=== PATIENT | female | born 1940 | race Caucasian/White ===

== ENCOUNTER 2018-10-31 17:13 | Observation (INO) | payer MEDICARE ==
[2018-10-31] MEDS ORDERED: Albuterol-Ipratrop 3 mg / 0.5 (3 ml) UD ONE ×2 (17:43→20:21)
[2018-10-31] MEDS ORDERED: MethylPREDNISolone 40 mg Vial IVP STA (18:15)
[2018-10-31] MEDS ORDERED: Albuterol-Ipratrop 3 mg / 0.5 (3 ml) UD INH STA ×2 (18:15→19:46)
--- NOTE | 2018-10-31 18:29 | C.PDOC ---
History Of Present Illness 78 y/o female with a PMHx of HTN and DM, comes in for evaluation of cough and congestion for the last 3 days. Patient was seen by PMD and started on amoxicillin with minimal relief. Also reports chills. Otherwise patient denies any fevers, chest pain, SOB, nausea, or vomiting. Time Seen by Provider: 10/31/18 18:09 Chief Complaint (Nursing): Shortness Of Breath History Per: Patient History/Exam Limitations: no limitations Onset/Duration Of Symptoms: Days Current Symptoms Are (Timing): Still Present Associated Symptoms: Chills, Cough, Nasal Congestion Past Medical History Reviewed: Historical Data, Nursing Documentation, Vital Signs Vital Signs: Last Vital Signs Temp 97.6 F 10/31/18 17:32 Pulse 106 H 10/31/18 17:32 Resp 20 10/31/18 17:32 BP 130/74 10/31/18 17:32 Pulse Ox 92 L 10/31/18 17:32 - Medical History PMH: Arthritis, Diabetes, HTN, Hypercholesterolemia Surgical History: No Surg Hx Family History: States: No Known Family Hx - Social History Hx Alcohol Use: No Hx Substance Use: No - Immunization History Hx Tetanus Toxoid Vaccination: No Hx Influenza Vaccination: Yes (07/2018) Hx Pneumococcal Vaccination: No Review Of Systems Except As Marked, All Systems Reviewed And Found Negative. Constitutional: Positive for: Chills. Negative for: Fever Eyes: Negative for: Vision Change ENT: Positive for: Nose Congestion Cardiovascular: Negative for: Chest Pain, Palpitations Respiratory: Positive for: Cough, Wheezing. Negative for: Shortness of Breath Gastrointestinal: Negative for: Nausea, Vomiting, Diarrhea Skin: Negative for: Rash Neurological: Negative for: Weakness, Numbness, Dizziness Physical Exam - Physical Exam Appears: Non-toxic, No Acute Distress Skin: Warm, Dry Head: Atraumatic, Normacephalic Eye(s): bilateral: Normal Inspection, PERRL, EOMI Oral Mucosa: Moist Throat: Normal, No Erythema, No Exudate Neck: Normal ROM, Supple Chest: Symmetrical Cardiovascular: Rhythm Regular, No Murmur Respiratory: No Rales, No Rhonchi, Wheezing (scattered), Other (No respiratory distress) Gastrointestinal/Abdominal: Soft, No Tenderness, No Distention Back: Normal Inspection Extremity: Bilateral: Atraumatic, Normal Color And Temperature, Normal ROM Neurological/Psych: Oriented x3, Normal Speech ED Course And Treatment - Laboratory Results Result Diagrams: 10/31/18 18:37 10/31/18 18:37 O2 Sat by Pulse Oximetry: 92 (RA) Pulse Ox Interpretation: Abnormal Medical Decision Making Medical Decision Making: suspect asthmatic bronchitis. pt mildy hypoxic. with diffuse wheezing rhonic Plan: --Labs --EKG --Chest x-ray --Albuterol neb x1 --125 mg IV solu-medrol --Reassess persisent wheezing. cxr likely basilar atelecatsis vs infiltrate. empri antibiotics ordered. accepted by dr cragi for obs. Disposition - Disposition Disposition: HOSPITALIZED Disposition Time: 20:44 Condition: STABLE - Clinical Impression Clinical Impression: Asthmatic bronchitis - Scribe Statement The provider has reviewed the documentation as recorded by the Domingo Henriquez Provider Attestation: All medical record entries made by the Jonnyibjohn were at my direction and personally dictated by me. I have reviewed the chart and agree that the record accurately reflects my personal performance of the history, physical exam, medical decision making, and the department course for this patient. I have also personally directed, reviewed, and agree with the discharge instructions and disposition. Decision To Admit - . Bed Request Type: Regular Admitting Physician: Rama Craig Patient Diagnosis: Asthmatic bronchitis
[2018-10-31 18:45] LABS: BASO % 0.6 % (0.0-2.0); EOS # 0.1 K/uL (0.0-0.7); EOS % 1.1 % (0.0-4.0); HEMOGLOBIN 12.8 g/dL (11.0-16.0); LYMPH # 1.7 K/uL (1.0-4.3); LYMPH % 23.6 % (20.0-40.0); MEAN CELL VOLUME 93.3 fL (81.0-99.0); MEAN CORPUSCULAR HEMOGLOBIN 31.4 pg (27.0-31.0); MEAN CORPUSCULAR HGB CONC 33.7 g/dL (33.0-37.0); MONO # 0.6 K/uL (0.0-0.8); NEUT # 4.9 K/uL (1.8-7.0); NEUT % 66.7 % (50.0-75.0); NRBC % 0.1 % (0.0-2.0); RBC 4.08 Mil/uL (3.80-5.20); RED CELL DISTRIBUTION WIDTH 13.2 % (11.5-14.5); WHITE BLOOD COUNT 7.3 K/uL (4.8-10.8)
[2018-10-31 18:59] LABS: ALB/GLOB RATIO 1.2 (1.0-2.1); ALBUMIN 5.1 g/dL (3.5-5.0); ALT/SGPT 55 U/L (9-52); AST/SGOT 58 U/L (14-36); BLOOD UREA NITROGEN 24 mg/dL (7-17); CALCIUM 9.8 mg/dl (8.6-10.4); GFR NON-AFRICAN AMERICAN 54
[2018-10-31 19:03] LABS: SQUAMOUS EPITHIAL < 1 /hpf (0-5); URINE BILIRUBIN NEGATIVE (NEGATIVE); URINE BLOOD NEGATIVE (NEGATIVE); URINE CLARITY Clear (Clear); URINE COLOR Straw (YELLOW); URINE GLUCOSE (UA) 2+ mg/dL (Normal); URINE LEUKOCYTE ESTERASE NEG Leu/uL (Negative); URINE PROTEIN NEGATIVE (NEGATIVE); URINE UROBILINOGEN NORMAL mg/dL (0.2-1.0)
[2018-10-31 19:09] LABS: B-TYPE NATRIURETIC PEPTIDE 121 pg/mL (0-900)
[2018-10-31] MEDS ORDERED: Azithromycin 500 MG in Sodium Chloride 0.9% 250 ML IVPB STA (19:46)
[2018-10-31] MEDS ORDERED: Azithromycin 500mg/250ML NS 500 MG/250 ML BAG IVPB ONE (20:22)
[2018-10-31] MEDS: (Novolog) Insulin Aspart, Recombinant 100 u/ml 10 ml vial SC SCH (22:58)
[2018-10-31 23:42] VITALS: RESP 20
[2018-11-01] MEDS: Albuterol-Ipratrop 3 mg / 0.5 (3 ml) UD INH SCH ×6 (00:51→20:47)
[2018-11-01] MEDS: (Novolog) Insulin Aspart, Recombinant 100 u/ml 10 ml vial SC SCH ×4 (07:55→21:18)
--- NOTE | 2018-11-01 09:04 | RAD ---
Date of service: 10/31/2018 PROCEDURE: CHEST RADIOGRAPH, 1 VIEW HISTORY: chest pain COMPARISON: 07/25/2018. FINDINGS: LUNGS: The lungs are well inflated and clear. PLEURA: No pneumothorax or pleural effusion. CARDIOVASCULAR: The heart is normal in size. No aortic atherosclerotic calcifications present. OSSEOUS STRUCTURES: Within normal limits for the patient's age. VISUALIZED UPPER ABDOMEN: Normal. OTHER FINDINGS: None. IMPRESSION: No active pulmonary disease.
[2018-11-01] MEDS ORDERED: Enoxaparin 40 mg Syringe SC SCH (10:00)
[2018-11-01] MEDS ORDERED: Azithromycin 500mg/250ML NS 500 MG/250 ML BAG IVPB SCH (10:00)
[2018-11-01] MEDS: NIFEdipine 30 mg ER Tab PO SCH (10:07)
[2018-11-01] MEDS: Enoxaparin 40 mg Syringe SC SCH (10:08)
[2018-11-01] MEDS: MethylPREDNISolone 40 mg Vial IVP SCH ×2 (10:09→17:29)
[2018-11-02] MEDS: Albuterol-Ipratrop 3 mg / 0.5 (3 ml) UD INH SCH ×6 (00:15→23:50)
[2018-11-02] MEDS: (Novolog) Insulin Aspart, Recombinant 100 u/ml 10 ml vial SC SCH ×4 (07:54→21:17)
[2018-11-02] MEDS: NIFEdipine 30 mg ER Tab PO SCH (09:41)
[2018-11-02] MEDS: Enoxaparin 40 mg Syringe SC SCH (09:42)
[2018-11-02] MEDS: MethylPREDNISolone 40 mg Vial IVP SCH ×2 (09:42→17:24)
[2018-11-02] MEDS ORDERED: Pneumococcal 23-Valent Vaccine IM ONE (10:00)
[2018-11-02] MEDS: Azithromycin 500mg/250ML NS 500 MG/250 ML BAG IVPB SCH (10:45)
[2018-11-03] MEDS: (Novolog) Insulin Aspart, Recombinant 100 u/ml 10 ml vial SC SCH ×4 (07:42→21:27)
--- NOTE | 2018-11-03 08:14 | HP ---
HISTORY OF PRESENT ILLNESS: A 78-year-old female, admitted to the hospital with chief complaint of shortness of breath, weakness, fatigue, tiredness. The patient has diabetes and hypertension, came to the ER for evaluation. PHYSICAL EXAMINATION: GENERAL: The patient is awake, alert, and oriented. VITAL SIGNS: Temperature 98, pulse 90. HEENT: Within normal limits. NECK: Supple. CHEST: Symmetrical. HEART: Regular. Decreased air entry bilaterally. ABDOMEN: Soft. EXTREMITIES: No edema. ASSESSMENT AND PLAN: The patient suffers from bronchitis and pneumonia. The patient is placed on IV antibiotics, . Rama Castle MD
[2018-11-03] MEDS: Albuterol-Ipratrop 3 mg / 0.5 (3 ml) UD INH SCH ×4 (08:23→20:55)
[2018-11-03] MEDS: MethylPREDNISolone 40 mg Vial IVP SCH ×2 (09:33→17:25)
[2018-11-03] MEDS: NIFEdipine 30 mg ER Tab PO SCH (09:33)
[2018-11-03] MEDS: Enoxaparin 40 mg Syringe SC SCH (09:33)
[2018-11-03] MEDS: Azithromycin 500mg/250ML NS 500 MG/250 ML BAG IVPB SCH (09:52)
--- NOTE | 2018-11-03 10:08 | CP.PCM.PN ---
Subjective - Date & Time of Evaluation Date of Evaluation: 11/03/18 Time of Evaluation: 09:02 - Subjective Subjective: PGY2 Medicine Note Dr. Castle Patient seen and examined this morning at bedside. No acute events overnight. Patient is complaining of nasal congestion. She had a nose bleed yesterday and is still experiencing some intermittent bleeding when she blows her nose. Her breathing is much improved but still coughing at times. Denies fevers, chills, nausea, vomiting, diarrhea, constipation, chest pain or shortness of breath. Objective - Vital Signs/Intake and Output Vital Signs (last 24 hours): Temp Pulse Resp BP Pulse Ox 97.9 F 90 20 166/91 H 98 11/03/18 07:45 11/03/18 07:45 11/03/18 07:45 11/03/18 07:45 11/03/18 07:53 Intake and Output: 11/03/18 11/03/18 06:59 18:59 Intake Total 1040 Balance 1040 - Medications Medications: Current Medications Albuterol/Ipratropium (Duoneb 3 Mg/0.5 Mg (3 Ml) Ud) 3 ml INH RQ4 [facility] Last Admin: 11/03/18 08:23 Dose: 3 ml Aspirin (Ecotrin) 81 mg PO DAILY [facility] Last Admin: 11/03/18 09:33 Dose: 81 mg Enoxaparin Sodium (Lovenox) 40 mg SC DAILY [facility] Last Admin: 11/03/18 09:33 Dose: 40 mg Glipizide (Glucotrol) 5 mg PO DAILY [facility] Last Admin: 11/03/18 09:33 Dose: 5 mg Hydrochlorothiazide (Hydrodiuril) 25 mg PO DAILY [facility] Last Admin: 11/03/18 09:33 Dose: 25 mg Ceftriaxone Sodium 1 gm/ (Sodium Chloride) 100 mls @ 100 mls/hr IVPB DAILY [facility]; Protocol Last Admin: 11/03/18 09:34 Dose: 100 mls/hr Azithromycin (Zithromax 500mg In Ns Addvantage) 500 mg in 250 mls @ 167 mls/hr IVPB DAILY [facility]; Protocol Last Admin: 11/03/18 09:52 Dose: 167 mls/hr Insulin Aspart (Novolog) 0 unit SC ACHS [facility]; Protocol Last Admin: 11/03/18 07:42 Dose: Not Given Losartan Potassium (Cozaar) 100 mg PO DAILY [facility] Last Admin: 11/03/18 09:52 Dose: 100 mg Methylprednisolone (Solu-Medrol) 40 mg IVP BID [facility] Last Admin: 11/03/18 09:33 Dose: 40 mg Nifedipine (Procardia Xl) 30 mg PO DAILY [facility] Last Admin: 11/03/18 09:33 Dose: 30 mg Oseltamivir Phosphate (Tamiflu Cap) 75 mg PO BID [facility]; Protocol Stop: 11/05/18 20:59 Last Admin: 11/03/18 09:33 Dose: 75 mg Pantoprazole Sodium (Protonix Inj) 40 mg IVP DAILY [facility] Last Admin: 11/03/18 09:33 Dose: 40 mg Sitagliptin Phosphate (Januvia) 100 mg PO DAILY [facility] Last Admin: 11/03/18 09:33 Dose: 100 mg - Labs Labs: 10/31/18 18:37 10/31/18 18:37 APTT 30 SECONDS (21-34) 10/31/18 18:37 - Constitutional Appears: Non-toxic, No Acute Distress - Head Exam Head Exam: ATRAUMATIC, NORMOCEPHALIC - Eye Exam Eye Exam: Normal appearance - ENT Exam Additional comments: dried blood in left nostril Maxillary sinus tender to palpation - Neck Exam Neck Exam: absent: Lymphadenopathy, Tenderness - Respiratory Exam Respiratory Exam: NORMAL BREATHING PATTERN. absent: Accessory Muscle Use, Rales, Rhonchi, Wheezes, Respiratory Distress - Cardiovascular Exam Cardiovascular Exam: REGULAR RHYTHM, +S1, +S2 - GI/Abdominal Exam GI & Abdominal Exam: Soft. absent: Distended, Firm, Guarding, Rigid, Tenderness - Extremities Exam Extremities Exam: absent: Calf Tenderness, Pedal Edema - Neurological Exam Neurological Exam: Alert, Awake, Oriented x3 - Psychiatric Exam Psychiatric exam: Normal Affect, Normal Mood - Skin Skin Exam: Dry, Warm Assessment and Plan - Assessment and Plan (Free Text) Plan: Pneumonia Bronchitis CXR - no active pulmonary disease Afebrile Still intermittent coughing Medications: * Azithromycin 500mg IVPB (started on 11/02) * Rocephin 1gm IVPB (started on 11/02) * Solu-Medrol 40mg IVP BID * Oseltamivir 75mg PO BID * Duonebs q4h Diabetes Medications: * Glipizide 5mg PO daily * Sitagliptin 100mg PO daily Hypertension Medications: * Losartan 100mg PO daily * Nifedipine ER 30mg PO daily * HCTZ 25mg PO daily * Aspirin 81mg PO daily Prophylactic Care Lovenox 40mg SC daily DISPO: Plan to discharge home tomorrow. Patient is aware of plans for discharge tomorrow. Case discussed with Dr. Tin Givens Jaspreet PGY2
[2018-11-03 17:02] VITALS: O2SAT 97
[2018-11-04] MEDS: Albuterol-Ipratrop 3 mg / 0.5 (3 ml) UD INH SCH ×3 (00:39→07:25)
[2018-11-04] MEDS: (Novolog) Insulin Aspart, Recombinant 100 u/ml 10 ml vial SC SCH ×2 (07:33→12:27)
[2018-11-04] MEDS: NIFEdipine 30 mg ER Tab PO SCH (09:39)
[2018-11-04] MEDS: MethylPREDNISolone 40 mg Vial IVP SCH (09:40)
[2018-11-04] MEDS: Azithromycin 500mg/250ML NS 500 MG/250 ML BAG IVPB SCH (09:41)
[2018-11-04] MEDS: Enoxaparin 40 mg Syringe SC SCH (09:43)
--- NOTE | 2018-11-04 10:47 | CP.PCM.PN ---
Subjective - Date & Time of Evaluation Date of Evaluation: 11/04/18 Time of Evaluation: 07:30 - Subjective Subjective: Medicine progress note ( Dr. Castle's service) Patient was seen and examined at bedside. Patient reports that she is doing well and has no acute complaints. Patient still complains of cough with white phlegm, however, she notes improved breathing and wheezing. Patient denies symptoms of fever, chills, chest pain, palpitations, shortness of breath, nausea, vomiting, hemoptysis, dizziness or lightheadedness. Objective - Vital Signs/Intake and Output Vital Signs (last 24 hours): Temp Pulse Resp BP Pulse Ox 98 F 104 H 20 117/69 97 11/03/18 23:35 11/03/18 23:35 11/03/18 23:35 11/03/18 23:35 11/04/18 08:12 - Medications Medications: Current Medications Albuterol/Ipratropium (Duoneb 3 Mg/0.5 Mg (3 Ml) Ud) 3 ml INH RQ4 [facility] Last Admin: 11/04/18 07:25 Dose: 3 ml Aspirin (Ecotrin) 81 mg PO DAILY [facility] Last Admin: 11/04/18 09:39 Dose: 81 mg Enoxaparin Sodium (Lovenox) 40 mg SC DAILY [facility] Last Admin: 11/04/18 09:43 Dose: 40 mg Glipizide (Glucotrol) 5 mg PO DAILY [facility] Last Admin: 11/04/18 09:39 Dose: 5 mg Hydrochlorothiazide (Hydrodiuril) 25 mg PO DAILY [facility] Last Admin: 11/04/18 09:39 Dose: 25 mg Azithromycin (Zithromax 500mg In Ns Addvantage) 500 mg in 250 mls @ 167 mls/hr IVPB DAILY [facility]; Protocol Last Admin: 11/04/18 09:41 Dose: 167 mls/hr Insulin Aspart (Novolog) 0 unit SC ACHS [facility]; Protocol Last Admin: 11/04/18 07:33 Dose: Not Given Losartan Potassium (Cozaar) 100 mg PO DAILY [facility] Last Admin: 11/04/18 09:39 Dose: 100 mg Methylprednisolone (Solu-Medrol) 40 mg IVP BID [facility] Last Admin: 11/04/18 09:40 Dose: 40 mg Nifedipine (Procardia Xl) 30 mg PO DAILY [facility] Last Admin: 11/04/18 09:39 Dose: 30 mg Oseltamivir Phosphate (Tamiflu Cap) 75 mg PO BID [facility]; Protocol Stop: 11/05/18 20:59 Last Admin: 11/04/18 09:39 Dose: 75 mg Pantoprazole Sodium (Protonix Inj) 40 mg IVP DAILY [facility] Last Admin: 11/04/18 09:40 Dose: 40 mg Sitagliptin Phosphate (Januvia) 100 mg PO DAILY [facility] Last Admin: 11/04/18 09:44 Dose: 100 mg - Labs Labs: 10/31/18 18:37 10/31/18 18:37 APTT 30 SECONDS (21-34) 10/31/18 18:37 - Constitutional Appears: Well, No Acute Distress - Head Exam Head Exam: ATRAUMATIC, NORMAL INSPECTION - Eye Exam Eye Exam: EOMI, Normal appearance - ENT Exam ENT Exam: Mucous Membranes Moist - Respiratory Exam Respiratory Exam: Wheezes, NORMAL BREATHING PATTERN Additional comments: Very mild diffuse expiratory wheezing - Cardiovascular Exam Cardiovascular Exam: REGULAR RHYTHM, +S1, +S2. absent: Tachycardia, Clicks, Murmur - GI/Abdominal Exam GI & Abdominal Exam: Soft, Normal Bowel Sounds. absent: Distended, Firm, Guarding, Rigid, Tenderness - Extremities Exam Extremities Exam: Normal Inspection. absent: Calf Tenderness, Full ROM, Pedal Edema - Neurological Exam Neurological Exam: Alert, Awake, Oriented x3 - Psychiatric Exam Psychiatric exam: Normal Affect, Normal Mood - Skin Skin Exam: Normal Color Assessment and Plan (1) Upper respiratory infection Assessment & Plan: Possibly 2/2 to pneumonia or bronchitis CXR - no active pulmonary disease Afebrile Still intermittent coughing with white phlegm Medications: * Azithromycin 500mg IVPB (started on 11/02) * Rocephin 1gm IVPB (started on 11/02) * Solu-Medrol 40mg IVP BID * Oseltamivir 75mg PO BID (started 11/01) * Duonebs q4h Status: Acute (2) Diabetes Assessment & Plan: Medications: * Glipizide 5mg PO daily * Sitagliptin 100mg PO daily * Accuchecks Status: Acute (3) Hypertension Assessment & Plan: Medications: * Losartan 100mg PO daily * Nifedipine ER 30mg PO daily * HCTZ 25mg PO daily * Aspirin 81mg PO daily Status: Acute (4) Prophylactic measure Assessment & Plan: Lovenox 40mg SC daily Disposition: Please discharge patient home Please continue all your home medication as prescribe by your primary care physician Please follow up with Dr. Castle at his office in 1-3 days Please take medrol dosepak for 5 days, Please take with food in the morning Please take benzonatate 100mg PO three times a day as needed Please take tamiflu 75mg PO BID for the next 2.5 days; you have 3 tablets to complete Please continue with hydration Please return to the hospital if symptoms resumes Please take care Status: Acute
[2018-11-04 11:44] VITALS: BP 149/83; PULSE 96; TEMP 97.7
== END 2018-11-04 13:45 | disposition home or self-care (01) ==
LOC: C.ER 17:13 → C.9E 20:03 → C.3T 21:21
PROVIDERS: ADMIT Internal Medicine Pulmonary Disease; ATTEND Internal Medicine Pulmonary Disease
DX: J40 Bronchitis, not specified as acute or chronic (principal); J45.909 Unspecified asthma, uncomplicated; J18.9 Pneumonia, unspecified organism; E11.9 Type 2 diabetes mellitus without complications; I10 Essential (primary) hypertension; E78.00 Pure hypercholesterolemia, unspecified; R04.0 Epistaxis; R09.02 Hypoxemia
CPT/HCPCS: 71045; 80053; 81001; 82948; 83880; 84484; 85025; 85730; 87040; 87804; 90732; 94640; 94760; 96374; 97110; 97162; 99285; C9113; G0009; G0378; G8978; G8979; G8980; J0456; J0696; J1650; J2920; J7050

== ENCOUNTER 2019-01-20 12:47 | Outpatient (CLI) | payer MEDICARE | END 2019-01-20 12:48 | disposition home or self-care (01) | LOC: C.USIC 12:47 | DX: R80.9 Proteinuria, unspecified (principal) ==

== ENCOUNTER 2019-02-02 16:12 | Inpatient (IN) | payer MEDICARE ==
[2019-02-02 16:54] VITALS: BMI 23.6
--- NOTE | 2019-02-02 17:30 | C.PDOC ---
History Of Present Illness Patient is a 78 year old female with pmhx of DM2, HTN, recently admitted with bronchitis presenting to ED with complaints of cough yesterday. Patient reports cough of 1 day, productive of white sputum. Patient reports throat and r estrosternal burning resulting in decreased po intake as shine irritates the burning. Patient reports left sided neck and shoulder pain associated with coughing yesterday morning, currently resolved. Patient denies dizziness, headache, chest pain, nausea, diaphoresis. <Tori Cardoso - Last Filed: 02/02/19 20:30> History Per: Patient History/Exam Limitations: no limitations Onset/Duration Of Symptoms: Days Current Symptoms Are (Timing): Better Quality: Burning, Other (retrosternal) Associated Symptoms: Dyspnea. denies: Nausea, Diaphoresis, Syncope <Tori Cardoso - Last Filed: 02/02/19 20:30> <Saul Amezquita DO - Last Filed: 02/03/19 00:32> Chief Complaint (Nursing): Chest Pain Past Medical History Reviewed: Historical Data, Nursing Documentation, Vital Signs Vital Signs: Last Vital Signs Temp 98.0 F 02/02/19 16:48 Pulse 99 H 02/02/19 16:48 Resp 17 02/02/19 16:48 BP 156/77 H 02/02/19 16:48 Pulse Ox 95 02/02/19 16:48 - Medical History PMH: Arthritis, Diabetes, HTN, Hypercholesterolemia Family History: States: Unknown Family Hx - Social History Hx Alcohol Use: No Hx Substance Use: No - Immunization History Hx Tetanus Toxoid Vaccination: No Hx Influenza Vaccination: Yes (07/2018) Hx Pneumococcal Vaccination: No <Tori Cardoso - Last Filed: 02/02/19 20:30> Vital Signs: Last Vital Signs Temp 98 F 02/02/19 22:34 Pulse 94 H 02/02/19 22:34 Resp 20 02/02/19 22:34 BP 162/80 H 02/02/19 22:34 Pulse Ox 97 02/02/19 22:34 <Saul Amezquita DO - Last Filed: 02/03/19 00:32> Review Of Systems Constitutional: Negative for: Sweats ENT: Negative for: Nose Congestion Cardiovascular: Negative for: Chest Pain, Palpitations Respiratory: Positive for: Cough, Shortness of Breath, Sputum (white) Gastrointestinal: Negative for: Nausea, Abdominal Pain Musculoskeletal: Positive for: Neck Pain (left), Shoulder Pain (left) Neurological: Negative for: Numbness, Confusion <Tori Cardoso - Last Filed: 02/02/19 20:30> Physical Exam - Physical Exam Appears: Non-toxic, No Acute Distress Skin: Normal Color, Warm, Dry Head: Atraumatic, Normacephalic Eye(s): bilateral: Normal Inspection, EOMI Oral Mucosa: Moist Neck: Normal Cardiovascular: Rhythm Regular, No Murmur Respiratory: Rales (RLL), No Wheezing Extremity: No Pedal Edema, No Calf Tenderness Neurological/Psych: Oriented x3 <Tori Cardoso - Last Filed: 02/02/19 20:30> ED Course And Treatment - Laboratory Results Result Diagrams: 02/02/19 17:30 02/02/19 18:27 Lab Interpretation: Abnormal Interpretation Of Abnormal: hyponatremia ECG Rhythm: Sinus Rhythm ECG Interpretation: Abnormal (possible left artial enlargement, age indeterminate anteroseptal infarct) O2 Sat by Pulse Oximetry: 95 - Radiology CXR: Viewed By Me, Read By Radiologist CXR Interpretation: Yes: No Acute Disease <Tori Cardoso - Last Filed: 02/02/19 20:30> - Laboratory Results Result Diagrams: 02/02/19 17:30 02/02/19 18:27 Lab Results: Troponin I < 0.0120 ng/mL (0.00-0.120) 02/02/19 22:35 Total Bilirubin 0.6 mg/dL (0.2-1.3) 02/02/19 18:27 AST 53 U/L (14-36) H 02/02/19 18:27 ALT 33 U/L (9-52) 02/02/19 18:27 Alkaline Phosphatase 64 U/L (38-126) 02/02/19 18:27 Total Protein 8.3 g/dL (6.3-8.3) 02/02/19 18:27 Albumin 4.5 g/dL (3.5-5.0) 02/02/19 18:27 Globulin 3.7 gm/dL (2.2-3.9) 02/02/19 18:27 Albumin/Globulin Ratio 1.2 (1.0-2.1) 02/02/19 18:27 <Saul Amezquita DO - Last Filed: 02/03/19 00:32> Medical Decision Making Medical Decision Makin78 year old female with complaints of cough/SOB x1 day CBC CMP Troponin EKG CXR Hyponatremia 125 Admit for further workup/treatment <Tori Cardoso - Last Filed: 02/02/19 20:30> Disposition Discussed With : Fransico Gaines Comment: accepted on service by Dr. Danny Gaines Counseled Patient/Family Regarding: Studies Performed, Diagnosis, Need For Followup - Disposition Disposition Time: 17:45 - POA Present On Arrival: None <Tori Cardoso - Last Filed: 02/02/19 20:30> <Saul Amezquita DO - Last Filed: 02/03/19 00:32> - Disposition Disposition: HOSPITALIZED Condition: FAIR - Clinical Impression Clinical Impression: Chest pain, Hyponatremia - PA / CUSTOMER SUPPORT ENGINEER / Resident Statement / has reviewed & agrees with the documentation as recorded. / has examined the patient and agrees with the treatment plan. <Sual Amezquita DO - Last Filed: 02/03/19 00:32>
[2019-02-02 17:42] LABS: BASO # 0.1 K/uL (0.0-0.2); EOS # 0.2 K/uL (0.0-0.7); EOS % 2.3 % (0.0-4.0); HEMOGLOBIN 12.1 g/dL (11.0-16.0); LYMPH # 1.1 K/uL (1.0-4.3); LYMPH % 15.3 % (20.0-40.0); MEAN CELL VOLUME 91.9 fL (81.0-99.0); MEAN CORPUSCULAR HEMOGLOBIN 31.2 pg (27.0-31.0); MEAN PLATELET VOLUME 6.9 fL (7.2-11.7); MONO # 0.6 K/uL (0.0-0.8); MONO % 8.7 % (0.0-10.0); NEUT # 5.2 K/uL (1.8-7.0); NEUT % 72.7 % (50.0-75.0); NRBC % 0.2 % (0.0-2.0); RBC 3.86 Mil/uL (3.80-5.20); RED CELL DISTRIBUTION WIDTH 13.3 % (11.5-14.5); WHITE BLOOD COUNT 7.2 K/uL (4.8-10.8)
--- NOTE | 2019-02-02 18:31 | RAD ---
Date of service: 02/02/2019 PROCEDURE: CHEST RADIOGRAPH, 1 VIEW HISTORY: chest pain COMPARISON: 10/31/2018. FINDINGS: LUNGS: Clear. PLEURA: No pneumothorax or pleural fluid seen. CARDIOVASCULAR: No aortic atherosclerotic calcification present. Normal. OSSEOUS STRUCTURES: No significant abnormalities. VISUALIZED UPPER ABDOMEN: Normal. OTHER FINDINGS: None. IMPRESSION: No active disease.No significant interval change compared to the prior examination(s).
[2019-02-02 18:50] LABS: ALB/GLOB RATIO 1.2 (1.0-2.1); ALBUMIN 4.5 g/dL (3.5-5.0); ALT/SGPT 33 U/L (9-52); AST/SGOT 53 U/L (14-36); BLOOD UREA NITROGEN 25 mg/dL (7-17); CALCIUM 9.9 mg/dl (8.6-10.4); GFR NON-AFRICAN AMERICAN > 60
[2019-02-02] MEDS ORDERED: Azithromycin 500mg/250ML NS 500 MG/250 ML BAG IVPB STA (19:43)
[2019-02-02] MEDS: Sodium Chloride 0.9% 1,000 ML IV SCH (20:52)
[2019-02-02 21:47] VITALS: RESP 20
[2019-02-02] MEDS: (Novolog) Insulin Aspart, Recombinant 100 u/ml 10 ml vial SC SCH (22:59)
[2019-02-02 23:15] LABS: CK-MB 0.85 ng/mL (0.0-3.38)
[2019-02-03] MEDS: Sodium Chloride 0.9% 1,000 ML IV SCH ×2 (06:00→09:33)
[2019-02-03] MEDS: (Novolog) Insulin Aspart, Recombinant 100 u/ml 10 ml vial SC SCH ×4 (07:42→21:10)
[2019-02-03] MEDS: Pantoprazole 40 mg EC Tab PO SCH (09:27)
[2019-02-03] MEDS: NIFEdipine 30 mg ER Tab PO SCH (09:27)
[2019-02-03] MEDS: Enoxaparin 40 mg Syringe SC SCH (09:28)
[2019-02-03] MEDS: GlipiZIDE 2.5 mg Tab PO SCH (09:29)
[2019-02-03] MEDS ORDERED: DAPAGLIFLOZIN PROPANEDIOL 10 MG PO SCH (10:00)
[2019-02-03 10:14] LABS: BLOOD UREA NITROGEN 21 mg/dL (7-17); CALCIUM 9.8 mg/dl (8.6-10.4); GFR NON-AFRICAN AMERICAN > 60
--- NOTE | 2019-02-03 12:45 | CP.PCM.CON ---
History of Present Illness - History of Present Illness History of Present Illness: Patient is a 78 year old female with pmhx of DM2, HTN, recently admitted with bronchitis/PNA oct 2018 presenting to ED with complaints of cough yesterday. Patient reports cough of 1 day, productive of white sputum. Patient reports t hroat and restrosternal burning resulting in decreased po intake as hsine irritates the burning. Patient reports left sided neck and shoulder pain associated with coughing yesterday morning, currently resolved. Patient denies dizziness, headache, chest pain, nausea, diaphoresis. Cardiac HX: No prior PA or CVA Ordinarily: no angina with effort, no CHF sx;s with exertion, no volume overload or carotid sx's. Review of Systems - Review of Systems All systems: reviewed and no additional remarkable complaints except Past Patient History - Past Social History Smoking Status: Never Smoked - CARDIAC Hx Hypercholesterolemia: Yes Hx Hypertension: Yes - ENDOCRINE/METABOLIC Hx Endocrine Disorders: Yes Hx Diabetes Mellitus Type 2: Yes - MUSCULOSKELETAL/RHEUMATOLOGICAL Hx Arthritis: Yes - PSYCHIATRIC Hx Substance Use: No - SURGICAL HISTORY Hx Surgeries: No - ANESTHESIA Hx Anesthesia: No Meds Allergies/Adverse Reactions: Allergies Allergy/AdvReac Type Severity Reaction Status Date / Time No Known Allergies Allergy Verified 02/02/19 16:51 - Medications Medications: Current Medications Aspirin (Aspirin) 325 mg PO DAILY [facility] Last Admin: 02/03/19 09:28 Dose: 325 mg Aspirin (Ecotrin) 81 mg PO DAILY [facility] Last Admin: 02/03/19 09:27 Dose: 81 mg Enoxaparin Sodium (Lovenox) 40 mg SC DAILY [facility] Last Admin: 02/03/19 09:28 Dose: 40 mg Glipizide (Glucotrol) 5 mg PO DAILY [facility] Last Admin: 02/03/19 09:29 Dose: 5 mg Home Med (Dapagliflozin Propanediol [Farxiga]) 10 mg PO DAILY [facility] Home Med (Home Med) 1 unit INH DAILY [facility] Hydrochlorothiazide (Hydrodiuril) 25 mg PO DAILY [facility] Last Admin: 02/03/19 09:27 Dose: 25 mg Sodium Chloride (Sodium Chloride 0.9%) 1,000 mls @ 100 mls/hr IV .Q10H [facility] Last Admin: 02/03/19 09:33 Dose: 100 mls/hr Ceftriaxone Sodium 1 gm/ (Sodium Chloride) 100 mls @ 100 mls/hr IVPB Q24H [facility]; Protocol Azithromycin (Zithromax 500mg In Ns Addvantage) 500 mg in 250 mls @ 167 mls/hr IVPB Q24H [facility]; Protocol Insulin Aspart (Novolog) 0 unit SC ACHS [facility]; Protocol Last Admin: 02/03/19 12:43 Dose: 2 units Losartan Potassium (Cozaar) 100 mg PO DAILY [facility] Last Admin: 02/03/19 09:27 Dose: 100 mg Metformin HCl (Glucophage) 1,000 mg PO BID [facility] Last Admin: 02/03/19 09:28 Dose: 1,000 mg Nifedipine (Procardia Xl) 30 mg PO DAILY [facility] Last Admin: 02/03/19 09:27 Dose: 30 mg Pantoprazole Sodium (Protonix Ec Tab) 40 mg PO DAILY [facility] Last Admin: 02/03/19 09:27 Dose: 40 mg Sitagliptin Phosphate (Januvia) 100 mg PO DAILY [facility] Last Admin: 02/03/19 09:27 Dose: 100 mg Physical Exam - Constitutional Appears: No Acute Distress - Head Exam Head Exam: ATRAUMATIC, NORMAL INSPECTION, NORMOCEPHALIC - Eye Exam Eye Exam: EOMI, Normal appearance. absent: Scleral icterus - ENT Exam ENT Exam: Mucous Membranes Moist, Normal Oropharynx - Neck Exam Neck exam: Positive for: Full Rom, Normal Inspection - Respiratory Exam Respiratory Exam: Clear to Auscultation Bilateral, NORMAL BREATHING PATTERN. absent: Rhonchi, Wheezes - Cardiovascular Exam Cardiovascular Exam: REGULAR RHYTHM, +S1, +S2. absent: Gallop, Systolic Murmur - GI/Abdominal Exam GI & Abdominal Exam: Normal Bowel Sounds, Soft. absent: Tenderness - Extremities Exam Extremities exam: Positive for: normal inspection. Negative for: calf tenderness, pedal edema - Neurological Exam Neurological exam: Alert, CN II-XII Intact, Oriented x3 - Psychiatric Exam Psychiatric exam: Normal Affect, Normal Mood - Skin Skin Exam: Normal Color, Warm Results - Vital Signs Recent Vital Signs: Last Vital Signs Temp 99.0 F 02/03/19 07:00 Pulse 78 02/03/19 09:32 Resp 20 02/03/19 07:00 BP 177/80 H 02/03/19 07:00 Pulse Ox 97 02/03/19 09:32 - Labs Result Diagrams: 02/02/19 17:30 02/03/19 03:13 Labs: Laboratory Results - last 24 hr 02/02/19 02/02/19 02/02/19 17:30 18:27 22:27 WBC 7.2 RBC 3.86 Hgb 12.1 Hct 35.5 MCV 91.9 MCH 31.2 H MCHC 34.0 RDW 13.3 Plt Count 201 MPV 6.9 L Neut % (Auto) 72.7 Lymph % (Auto) 15.3 L [place] % (Auto) 8.7 Eos % (Auto) 2.3 Baso % (Auto) 1.0 Neut # (Auto) 5.2 Lymph # (Auto) 1.1 [place] # (Auto) 0.6 Eos # (Auto) 0.2 Baso # (Auto) 0.1 Sodium 125 L Potassium 4.5 Chloride 87 L Carbon Dioxide 28 Anion Gap 15 BUN 25 H Creatinine 0.7 Est GFR ( Amer) > 60 Est GFR (Non-Af Amer) > 60 POC Glucose (mg/dL) 185 H Random Glucose 102 D Calcium 9.9 Total Bilirubin 0.6 AST 53 H ALT 33 Alkaline Phosphatase 64 Total Creatine Kinase CK-MB (Mass) Troponin I < 0.0120 Total Protein 8.3 Albumin 4.5 Globulin 3.7 Albumin/Globulin Ratio 1.2 02/02/19 02/03/19 02/03/19 22:35 03:13 06:23 WBC RBC Hgb Hct MCV MCH MCHC RDW Plt Count MPV Neut % (Auto) Lymph % (Auto) [place] % (Auto) Eos % (Auto) Baso % (Auto) Neut # (Auto) Lymph # (Auto) [place] # (Auto) Eos # (Auto) Baso # (Auto) Sodium 128 L Potassium 4.1 Chloride 92 L Carbon Dioxide 27 Anion Gap 12 BUN 21 H Creatinine 0.8 Est GFR ( Amer) > 60 Est GFR (Non-Af Amer) > 60 POC Glucose (mg/dL) 104 Random Glucose 100 Calcium 9.8 Total Bilirubin AST ALT Alkaline Phosphatase Total Creatine Kinase 41 38 CK-MB (Mass) 0.85 0.70 Troponin I < 0.0120 < 0.0120 Total Protein Albumin Globulin Albumin/Globulin Ratio - EKG Data EKG Interpreted by: Myself - Imaging and Cardiology Chest x-ray Status: Image reviewed by me Assessment & Plan - Assessment and Plan (Free Text) Assessment: 78 y/o cough, SOB, CP, L. 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 Will sign off - Date & Time Date: 02/03/19 Time: 13:09
--- NOTE | 2019-02-03 18:53 | CP.PCM.HP ---
Past Patient History - Past Social History Smoking Status: Never Smoked - CARDIAC Hx Hypercholesterolemia: Yes Hx Hypertension: Yes - ENDOCRINE/METABOLIC Hx Endocrine Disorders: Yes Hx Diabetes Mellitus Type 2: Yes - MUSCULOSKELETAL/RHEUMATOLOGICAL Hx Arthritis: Yes - PSYCHIATRIC Hx Substance Use: No - SURGICAL HISTORY Hx Surgeries: No - ANESTHESIA Hx Anesthesia: No Meds Allergies/Adverse Reactions: Allergies Allergy/AdvReac Type Severity Reaction Status Date / Time No Known Allergies Allergy Verified 02/02/19 16:51 Physical Exam - Constitutional Appears: Well - Head Exam Head Exam: ATRAUMATIC, NORMAL INSPECTION, NORMOCEPHALIC - Eye Exam Eye Exam: EOMI, Normal appearance, PERRL Pupil Exam: NORMAL ACCOMODATION, PERRL - ENT Exam ENT Exam: Mucous Membranes Moist, Normal Exam - Neck Exam Neck exam: Positive for: Normal Inspection - Respiratory Exam Respiratory Exam: Decreased Breath Sounds - Cardiovascular Exam Cardiovascular Exam: REGULAR RHYTHM, +S1, +S2 - GI/Abdominal Exam GI & Abdominal Exam: Diminished Bowel Sounds, Soft - Rectal Exam Rectal Exam: Deferred - Neurological Exam Neurological exam: Oriented x3 Results - Vital Signs Recent Vital Signs: Last Vital Signs Temp 98.0 F 02/03/19 17:00 Pulse 95 H 02/03/19 17:00 Resp 20 02/03/19 17:00 BP 153/78 H 02/03/19 17:00 Pulse Ox 98 02/03/19 17:00 - Labs Result Diagrams: 02/02/19 17:30 02/03/19 03:13 Labs: Laboratory Results - last 24 hr 02/02/19 02/02/19 02/02/19 18:27 22:27 22:35 Sodium Potassium Chloride Carbon Dioxide Anion Gap BUN Creatinine Est GFR ( Amer) Est GFR (Non-Af Amer) POC Glucose (mg/dL) 185 H Random Glucose Calcium Total Creatine Kinase 41 CK-MB (Mass) 0.85 Troponin I < 0.0120 < 0.0120 02/03/19 02/03/19 03:13 06:23 Sodium 128 L Potassium 4.1 Chloride 92 L Carbon Dioxide 27 Anion Gap 12 BUN 21 H Creatinine 0.8 Est GFR ( Amer) > 60 Est GFR (Non-Af Amer) > 60 POC Glucose (mg/dL) 104 Random Glucose 100 Calcium 9.8 Total Creatine Kinase 38 CK-MB (Mass) 0.70 Troponin I < 0.0120
[2019-02-03] MEDS: Azithromycin 500mg/250ML NS 500 MG/250 ML BAG IVPB SCH (20:36)
--- NOTE | 2019-02-03 20:37 | CARD ---
APPROVED REPORT Date of service: 02/02/2019 EKG Measurement Heart [id number] <Conclusion> Normal sinus rhythm Possible Left atrial enlargement Anteroseptal infarct, age undetermined Abnormal ECG
[2019-02-04] MEDS: (Novolog) Insulin Aspart, Recombinant 100 u/ml 10 ml vial SC SCH ×4 (08:02→21:42)
[2019-02-04 08:59] VITALS: O2SAT 98
[2019-02-04] MEDS: Pantoprazole 40 mg EC Tab PO SCH (09:16)
[2019-02-04] MEDS: GlipiZIDE 2.5 mg Tab PO SCH (09:18)
[2019-02-04] MEDS: NIFEdipine 30 mg ER Tab PO SCH (09:18)
[2019-02-04] MEDS: Enoxaparin 40 mg Syringe SC SCH (09:19)
[2019-02-04] MEDS: Megestrol Acetate 40 mg/ml Cup PO SCH (17:00)
--- NOTE | 2019-02-04 19:41 | CP.PCM.PN ---
Subjective - Date & Time of Evaluation Date of Evaluation: 02/04/19 - Subjective Subjective: patient seen today no nausea no vomiting no dizziness no fever no shortness of breath no diarrhea Objective - Vital Signs/Intake and Output Vital Signs (last 24 hours): Temp Pulse Resp BP Pulse Ox 97.7 F 108 H 20 160/90 H 98 02/04/19 07:30 02/04/19 16:28 02/04/19 07:30 02/04/19 07:30 02/04/19 07:30 - Medications Medications: Current Medications Aspirin (Ecotrin) 81 mg PO DAILY [facility] Last Admin: 02/04/19 09:17 Dose: 81 mg Enoxaparin Sodium (Lovenox) 40 mg SC DAILY [facility] Last Admin: 02/04/19 09:19 Dose: Not Given Glipizide (Glucotrol) 5 mg PO DAILY [facility] Home Med (Patient's Own Inhaler) 1 puff INH RQD [facility] Hydrochlorothiazide (Hydrodiuril) 25 mg PO DAILY [facility] Last Admin: 02/04/19 09:17 Dose: 25 mg Ceftriaxone Sodium 1 gm/ (Sodium Chloride) 100 mls @ 100 mls/hr IVPB Q24H [facility]; Protocol Last Admin: 02/03/19 19:16 Dose: 100 mls/hr Azithromycin (Zithromax 500mg In Ns Addvantage) 500 mg in 250 mls @ 167 mls/hr IVPB Q24H [facility]; Protocol Last Admin: 02/03/19 20:36 Dose: 167 mls/hr Insulin Aspart (Novolog) 0 unit SC ACHS [facility]; Protocol Last Admin: 02/04/19 16:59 Dose: Not Given Losartan Potassium (Cozaar) 100 mg PO DAILY [facility] Last Admin: 02/04/19 09:17 Dose: 100 mg Megestrol Acetate (Megace) 400 mg PO DAILY [facility] Last Admin: 02/04/19 17:00 Dose: 400 mg Metformin HCl (Glucophage) 1,000 mg PO BID [facility] Last Admin: 02/04/19 18:05 Dose: 1,000 mg Nifedipine (Procardia Xl) 30 mg PO DAILY [facility] Last Admin: 02/04/19 09:18 Dose: 30 mg Pantoprazole Sodium (Protonix Ec Tab) 40 mg PO DAILY [facility] Last Admin: 02/04/19 09:16 Dose: 40 mg Sitagliptin Phosphate (Januvia) 100 mg PO DAILY [facility] Last Admin: 02/04/19 09:17 Dose: 100 mg - Labs Labs: 02/02/19 17:30 02/03/19 03:13 - Constitutional Appears: Well - Head Exam Head Exam: ATRAUMATIC, NORMAL INSPECTION, NORMOCEPHALIC - Eye Exam Eye Exam: EOMI, Normal appearance, PERRL Pupil Exam: NORMAL ACCOMODATION, PERRL - ENT Exam ENT Exam: Mucous Membranes Moist, Normal Exam - Neck Exam Neck Exam: Full ROM, Normal Inspection. absent: Lymphadenopathy - Respiratory Exam Respiratory Exam: Decreased Breath Sounds - Cardiovascular Exam Cardiovascular Exam: REGULAR RHYTHM, +S1, +S2 - GI/Abdominal Exam GI & Abdominal Exam: Soft, Diminished Bowel Sounds - Rectal Exam Rectal Exam: Deferred - Neurological Exam Neurological Exam: Oriented x3 Assessment and Plan - Assessment and Plan (Free Text) Plan: ceftriaxone sodium cozaar ecotrin glucophage glucotrol hydrodiuril januvia lovenox megace novolog patients own inhaler procardio protonix ec tab zithromax medications reviewed vitals reviewed labs reviewed
[2019-02-04] MEDS: Azithromycin 500mg/250ML NS 500 MG/250 ML BAG IVPB SCH (21:00)
[2019-02-05 01:14] VITALS: BP 126/71; PULSE 97; TEMP 97.9
[2019-02-05] MEDS ORDERED: TRELEGY INH SCH (08:00)
[2019-02-05] MEDS: (Novolog) Insulin Aspart, Recombinant 100 u/ml 10 ml vial SC SCH ×2 (08:34→12:00)
[2019-02-05] MEDS: Simethicone 80 mg Chewtab PO SCH ×2 (09:16→14:22)
[2019-02-05] MEDS: Megestrol Acetate 40 mg/ml Cup PO SCH (10:02)
[2019-02-05] MEDS: Enoxaparin 40 mg Syringe SC SCH (10:03)
[2019-02-05] MEDS: Pantoprazole 40 mg EC Tab PO SCH (10:04)
--- NOTE | 2019-02-05 13:08 | CP.PCM.PN ---
Subjective - Date & Time of Evaluation Date of Evaluation: 02/05/19 - Subjective Subjective: patient seen and examined no nausea no vomiting no dizziness no chest pain no shortness of breath no diarrhea no fever Objective - Vital Signs/Intake and Output Vital Signs (last 24 hours): Temp Pulse Resp BP Pulse Ox 97.9 F 97 H 20 126/71 98 02/04/19 23:15 02/04/19 23:15 02/04/19 23:15 02/04/19 23:15 02/04/19 23:15 Intake and Output: 02/05/19 02/05/19 06:59 18:59 Intake Total 240 Balance 240 - Medications Medications: Current Medications Aspirin (Ecotrin) 81 mg PO DAILY [facility] Last Admin: 02/05/19 10:01 Dose: 81 mg Enoxaparin Sodium (Lovenox) 40 mg SC DAILY [facility] Last Admin: 02/05/19 10:03 Dose: 40 mg Glipizide (Glucotrol) 5 mg PO DAILY [facility] Last Admin: 02/05/19 10:04 Dose: 5 mg Home Med (Patient's Own Inhaler) 1 puff INH RQD [facility] Hydrochlorothiazide (Hydrodiuril) 25 mg PO DAILY [facility] Last Admin: 02/05/19 10:02 Dose: 25 mg Ceftriaxone Sodium 1 gm/ (Sodium Chloride) 100 mls @ 100 mls/hr IVPB Q24H [facility]; Protocol Last Admin: 02/04/19 20:31 Dose: 100 mls/hr Azithromycin (Zithromax 500mg In Ns Addvantage) 500 mg in 250 mls @ 167 mls/hr IVPB Q24H [facility]; Protocol Last Admin: 02/04/19 21:00 Dose: 167 mls/hr Insulin Aspart (Novolog) 0 unit SC ACHS [facility]; Protocol Last Admin: 02/05/19 08:34 Dose: 1 units Losartan Potassium (Cozaar) 100 mg PO DAILY [facility] Last Admin: 02/05/19 10:02 Dose: 100 mg Megestrol Acetate (Megace) 400 mg PO DAILY [facility] Last Admin: 02/05/19 10:02 Dose: 400 mg Metformin HCl (Glucophage) 1,000 mg PO BID [facility] Last Admin: 02/05/19 10:05 Dose: 1,000 mg Nifedipine (Procardia Xl) 30 mg PO DAILY [facility] Last Admin: 02/04/19 09:18 Dose: 30 mg Pantoprazole Sodium (Protonix Ec Tab) 40 mg PO DAILY [facility] Last Admin: 02/05/19 10:04 Dose: 40 mg Simethicone (Mylicon Chew Tab) 80 mg PO Q8 [facility] Last Admin: 02/05/19 09:16 Dose: 80 mg Sitagliptin Phosphate (Januvia) 100 mg PO DAILY [facility] Last Admin: 02/05/19 10:04 Dose: 100 mg - Labs Labs: 02/02/19 17:30 02/03/19 03:13 - Constitutional Appears: Well - Head Exam Head Exam: ATRAUMATIC, NORMAL INSPECTION, NORMOCEPHALIC - Eye Exam Eye Exam: EOMI, Normal appearance, PERRL Pupil Exam: NORMAL ACCOMODATION, PERRL - ENT Exam ENT Exam: Mucous Membranes Moist, Normal Exam - Neck Exam Neck Exam: Full ROM, Normal Inspection. absent: Lymphadenopathy - Respiratory Exam Respiratory Exam: Decreased Breath Sounds - Cardiovascular Exam Cardiovascular Exam: REGULAR RHYTHM, +S1, +S2 - GI/Abdominal Exam GI & Abdominal Exam: Soft, Diminished Bowel Sounds - Rectal Exam Rectal Exam: Deferred - Neurological Exam Neurological Exam: Oriented x3 Assessment and Plan - Assessment and Plan (Free Text) Plan: ceftriaxone sodium cozaar ecotrin glucophage glucotrol hydrodiuril januvia lovenox megace novolog patients own inhaler procardio protonix ec tab zithromax medications reviewed labs reviewed vitals reviewed
--- NOTE | 2019-02-05 14:06 | CP.PCM.PN ---
Subjective - Date & Time of Evaluation Date of Evaluation: 02/05/19 Time of Evaluation: 14:27 - Subjective Subjective: Pt sitting at the bedside, verbalized she wants to go home and that she feels better. Objective - Vital Signs/Intake and Output Vital Signs (last 24 hours): Temp Pulse Resp BP Pulse Ox 97.9 F 97 H 20 126/71 98 02/04/19 23:15 02/04/19 23:15 02/04/19 23:15 02/04/19 23:15 02/04/19 23:15 Intake and Output: 02/05/19 02/05/19 06:59 18:59 Intake Total 240 Balance 240 - Medications Medications: Current Medications Aspirin (Ecotrin) 81 mg PO DAILY [facility] Last Admin: 02/05/19 10:01 Dose: 81 mg Enoxaparin Sodium (Lovenox) 40 mg SC DAILY [facility] Last Admin: 02/05/19 10:03 Dose: 40 mg Glipizide (Glucotrol) 5 mg PO DAILY [facility] Last Admin: 02/05/19 10:04 Dose: 5 mg Home Med (Patient's Own Inhaler) 1 puff INH RQD [facility] Hydrochlorothiazide (Hydrodiuril) 25 mg PO DAILY [facility] Last Admin: 02/05/19 10:02 Dose: 25 mg Ceftriaxone Sodium 1 gm/ (Sodium Chloride) 100 mls @ 100 mls/hr IVPB Q24H [facility]; Protocol Last Admin: 02/04/19 20:31 Dose: 100 mls/hr Azithromycin (Zithromax 500mg In Ns Addvantage) 500 mg in 250 mls @ 167 mls/hr IVPB Q24H [facility]; Protocol Last Admin: 02/04/19 21:00 Dose: 167 mls/hr Insulin Aspart (Novolog) 0 unit SC ACHS [facility]; Protocol Last Admin: 02/05/19 08:34 Dose: 1 units Losartan Potassium (Cozaar) 100 mg PO DAILY [facility] Last Admin: 02/05/19 10:02 Dose: 100 mg Megestrol Acetate (Megace) 400 mg PO DAILY [facility] Last Admin: 02/05/19 10:02 Dose: 400 mg Metformin HCl (Glucophage) 1,000 mg PO BID [facility] Last Admin: 02/05/19 10:05 Dose: 1,000 mg Nifedipine (Procardia Xl) 30 mg PO DAILY [facility] Last Admin: 02/04/19 09:18 Dose: 30 mg Pantoprazole Sodium (Protonix Ec Tab) 40 mg PO DAILY [facility] Last Admin: 02/05/19 10:04 Dose: 40 mg Simethicone (Mylicon Chew Tab) 80 mg PO Q8 [facility] Last Admin: 02/05/19 09:16 Dose: 80 mg Sitagliptin Phosphate (Januvia) 100 mg PO DAILY [facility] Last Admin: 02/05/19 10:04 Dose: 100 mg - Labs Labs: 02/02/19 17:30 02/03/19 03:13 Assessment and Plan - Assessment and Plan (Free Text) Assessment: Pt is a 78 year old female that presented to the ER with complaints of chest pain and a persistent cough. Pt seen and examined. Pt is Alert and oriented x3, sitting at the bedside, with no complaints at this time. VSS. Pt has no complaints of Chest Pain and SOB. Pt verbalized and agreed with discharge planning. Dr. Rolanda manjarrez.
[2019-02-05] MEDS: NIFEdipine 30 mg ER Tab PO SCH (14:09)
== END 2019-02-05 16:15 | disposition home health service (06) | DRG 313 ==
LOC: C.ER 16:12 → C.9E 19:45 → C.5S 20:54 → C.6T 22:00 → OBSVTOIN 02-04 15:48
PROVIDERS: ADMIT Internal Medicine Nephrology; ATTEND Internal Medicine Nephrology
DX: R07.89 Other chest pain (principal); E87.1 Hypo-osmolality and hyponatremia; R05 Cough; R06.02 Shortness of breath; E11.9 Type 2 diabetes mellitus without complications; I10 Essential (primary) hypertension; E78.00 Pure hypercholesterolemia, unspecified; M19.90 Unspecified osteoarthritis, unspecified site; Z87.01 Personal history of pneumonia (recurrent); Z79.84 Long term (current) use of oral hypoglycemic drugs

== ENCOUNTER 2019-02-17 09:58 | Outpatient (CLI) | payer MEDICARE | END 2019-02-17 09:59 | disposition home or self-care (01) | LOC: C.RADIC 09:58 | DX: J18.9 Pneumonia, unspecified organism (principal) ==